=== PATIENT | male | born 1990 | race Hispanic/Latino ===

== ENCOUNTER 2021-11-28 18:11 | Emergency (ER) | payer SELFPAY ==
[~2021-11-28] VITALS: Ht 152.4 cm; Wt 81.6 kg
[2021-11-28] MEDS ORDERED: CLONIDINE HCL 0.2 MG TAB PO ONE (18:45)
[2021-11-28] MEDS ORDERED: CLONIDINE HCL 0.1 MG TAB ONE (19:15)
[2021-11-28] MEDS ORDERED: NORVASC5 MG PO (19:44)
== END 2021-11-28 19:50 | disposition home or self-care (01) ==
LOC: FSED 18:14
DX: I10 Essential (primary) hypertension (principal); R21 Rash and other nonspecific skin eruption
CPT/HCPCS: 99283